=== PATIENT | male | born 1990 | race African-American/Black ===

== ENCOUNTER 2021-07-13 11:59 | Emergency (ER) | payer OTHER, MEDICAID ==
[~2021-07-13] VITALS: Ht 182.9 cm; Wt 93.0 kg
[2021-07-13 12:06] VITALS: BP 124/73
--- NOTE | 2021-07-13 12:10 | NUR ---
PATIENT PRESENTS TO ED WITH ALL OVER BODY PAIN SECONDARY TO SICKLE CELL CRISIS THAT BEGAN 4 HOURS AGO . DENIES N/V/D; SKIN IS PINK/WARM/DRY; AAOX4 WITH EVEN AND STEADY GAIT; LUNGS CLEAR BL; HR EVEN AND REGULAR; PT DENIES ANY FEVER, CP, SOB, OR COUGH AT THIS TIME; PATIENT STATES PAIN OF 10/10 AT THIS TIME; VSS; PATIENT POSITIONED FOR COMFORT; HOB ELEVATED; BEDRAILS UP X2; BED DOWN. ER MD MADE AWARE OF PT STATUS. PMH: SICKLE CELL DISEASE NKDA
[2021-07-13 12:27] LABS: BASOPHILS # (AUTO) 0.2 K/uL (0.00-0.22); BASOPHILS % (AUTO) 1.7 % (0.0-2.0); EOSINOPHILS # (AUTO) 0.2 K/uL (0-0.4); EOSINOPHILS % (AUTO) 1.4 % (0.0-4.0); HEMOGLOBIN 11.5 g/dL (12.0-18.0); LYMPHOCYTES # (AUTO) 2.7 K/uL (2.0-11.5); LYMPHOCYTES % (AUTO) 18.9 % (20.5-51.1); MEAN CORPUSCULAR HEMOGLOBIN 30 pg (27-31); MEAN CORPUSCULAR HGB CONC 35 g/dL (33-37); MEAN CORPUSCULAR VOLUME 86.4 fL (80-94); MONOCYTES # (AUTO) 1.5 K/uL (0.8-1.0); MONOCYTES % (AUTO) 10.3 % (1.7-9.3); NEUTROPHILS # (AUTO) 9.7 K/uL (1.8-7.7); NEUTROPHILS % (AUTO) 67.7 % (42.2-75.2); PLATELET COUNT (AUTO) 283 K/uL (140-450); RED BLOOD CELL COUNT(AUTO) 3.82 MIL/uL (4.20-6.10); RED CELL DISTRIBUTION WIDTH 23.7 % (11.6-13.7); WHITE BLOOD COUNT (AUTO) 14.3 K/uL (4.8-10.8)
[2021-07-13] MEDS: KETOROLAC 30 MG/ML VIAL IM ONE (12:31)
[2021-07-13] MEDS: NACL 0.9% 1,000 ML IV ONE (12:31)
[2021-07-13 12:45] LABS: ALBUMIN 3.7 g/dL (3.4-5.0); CREATININE 1.2 mg/dL (0.6-1.3); TOTAL BILIRUBIN 2.9 mg/dL (0.0-1.0)
--- NOTE | 2021-07-13 12:55 | NUR ---
PT C/O 08/27 BODY PAIN AND REQUESTING MORE PAIN MEDICATION, TJ BACON MADE AWARE
[2021-07-13 13:00] LABS: ANION GAP 13.6 (8-16); POTASSIUM 4.6 mmol/L (3.5-5.1)
[2021-07-13] MEDS ORDERED: ACET-5629 PO (13:21)
[2021-07-13 13:26] VITALS: BP 124/73
--- NOTE | 2021-07-16 19:33 | NUR ---
LATE ENTRY- 0.9% NS IVF DISCONTINUED AT 1325
== END 2021-07-13 13:26 | disposition home or self-care (01) ==
LOC: MED 11:59
DX: D57.219 Sickle-cell/Hb-C disease with crisis, unspecified (principal)
CPT/HCPCS: 36415; 80053; 85025; 85045; 96360; 96372; 99283; J1885; J7030